=== PATIENT | female | born 1955 | race Caucasian/White ===

== ENCOUNTER → 2016-12-31 | Outpatient (CLI) | payer BC | LOC: MC.RAD 09:33 | DX: Z12.31 Encounter for screening mammogram for malignant neoplasm of breast (principal); Z90.11 Acquired absence of right breast and nipple ==

== ENCOUNTER → 2018-01-27 | Outpatient (CLI) | payer BC | LOC: MC.RAD 10:38 | DX: Z12.31 Encounter for screening mammogram for malignant neoplasm of breast (principal); Z90.11 Acquired absence of right breast and nipple ==

== ENCOUNTER → 2019-02-13 | Outpatient (CLI) | payer BC | LOC: MC.RAD 09:05 | DX: Z12.31 Encounter for screening mammogram for malignant neoplasm of breast (principal); Z90.11 Acquired absence of right breast and nipple ==

== ENCOUNTER → 2020-02-15 | Outpatient (CLI) | payer BC | LOC: MC.RAD 09:16 | DX: Z12.31 Encounter for screening mammogram for malignant neoplasm of breast (principal); Z90.11 Acquired absence of right breast and nipple ==

== ENCOUNTER → 2021-02-28 | Outpatient (CLI) | payer BC | LOC: MC.RAD 09:40 | DX: Z12.31 Encounter for screening mammogram for malignant neoplasm of breast (principal) ==

== ENCOUNTER → 2023-06-06 | Outpatient (CLI) | payer MEDICARE, BC | LOC: MC.RAD 09:01 | DX: Z12.31 Encounter for screening mammogram for malignant neoplasm of breast (principal); Z85.3 Personal history of malignant neoplasm of breast ==

== ENCOUNTER 2023-08-27 11:38 | Emergency (ER) | payer MEDICARE, BC ==
[~2023-08-27] VITALS: Ht 165.1 cm; Wt 100.0 kg
[2023-08-27 12:12] VITALS: TEMP 98.4
[2023-08-27] MEDS ORDERED: NS 1,000 ML IV ONE ×2 (13:45→16:15)
[2023-08-27] MEDS ORDERED: Ondansetron 4 MG/2 ML VIAL IV ONE (14:00)
[2023-08-27 14:06] LABS: HEMATOCRIT 41.3 % (37.0-47.0); HEMOGLOBIN 14.5 g/dl (12.5-16.0); MEAN CELL VOLUME 94 fl (80.0-100.0); MEAN CORPUSCULAR HEMOGLOBIN 33 pg (27-31); MEAN CORPUSCULAR HGB CONC 35 g/dl (33.0-37.0); MEAN PLATELET VOLUME 9.5 fl (7.4-10.4); PLATELET COUNT 160 K/mm3 (130-400); RED BLOOD COUNT 4.38 M/mm3 (4.10-5.30); REDCELL DISTRIBUTION WIDTH-CV 11.9 % (11.5-14.5)
[2023-08-27 14:33] LABS: ALBUMIN 3.3 gm/dL (3.4-4.8); BILIRUBIN,TOTAL 0.6 mg/dL (0.2-1.2); CALCIUM 8.3 mg/dL (8.4-10.2); CREATININE, serum 1.75 mg/dL (0.57-1.11); POTASSIUM 3.1 mmol/L (3.5-4.5); TOTAL PROTEIN 6.9 gm/dL (6.2-8.1)
[2023-08-27 14:47] LABS: BAND 46 % (0-10); LYMPHOCYTE 12 % (20.0-51.0); NEUTROPHILS 38 % (42.0-75.2)
[2023-08-27 14:48] LABS: ANISOCYTOSIS 1+; PLATELET ESTIMATE NORMAL (NORMAL)
[2023-08-27 14:49] LABS: STOMATOCYTE 1+
[2023-08-27 15:25] LABS: COLLECTION METHOD CLEAN CATCH
[2023-08-27] MEDS ORDERED: Iohexol 300 - 100 ML VIAL IV ONE (15:30)
[2023-08-27 15:35] LABS: PH 5.5 (5.0-8.5); URINE APPEARANCE TURBID (CLEAR/HAZY); URINE BLOOD 3+ (NEGATIVE); URINE COLOR Dark Yellow (YELLOW); URINE GLUCOSE NEGATIVE (NEGATIVE); URINE KETONE NEGATIVE (NEGATIVE); URINE NITRATE NEGATIVE (NEGATIVE); URINE PROTEIN(semi-quant) 2+ (NEGATIVE); URINE UROBILINOGEN 0.2 E.U/dL (0.2-1.0)
[2023-08-27] MEDS ORDERED: Iodixanol-320 100 ML BOTTLE IV ONE (15:38)
[2023-08-27] MEDS ORDERED: NS 100 ML IV SCH (15:47)
[2023-08-27] MEDS ORDERED: ZOFRAN ODT4 MG PO (16:34)
[2023-08-27 16:39] LABS: URINE BACTERIA MANY /hpf (NONE SEEN)
[2023-08-27 16:55] VITALS: BP 126/71; PULSE 88
[2023-08-27] MEDS ORDERED: CEPHALEXIN500 M1 PO (16:55)
[2023-08-27 19:03] LABS: CLOSTRIDIUM DIFF A/B NEG
== END 2023-08-27 17:05 | disposition home or self-care (01) ==
LOC: COL.ER 11:38
PROVIDERS: Physician Assistant
DX: K52.9 Noninfective gastroenteritis and colitis, unspecified (principal); N17.9 Acute kidney failure, unspecified; E87.6 Hypokalemia; K21.9 Gastro-esophageal reflux disease without esophagitis; Z87.891 Personal history of nicotine dependence
CPT/HCPCS: J2405; J7030; Q9967